=== PATIENT | female | born 1965 | race Caucasian/White ===

== ENCOUNTER 2018-05-30 14:38 | Emergency (ER) | payer BC ==
[~2018-05-30] VITALS: Ht 165.1 cm; Wt 120.2 kg
[2018-05-30] MEDS ORDERED: METOPROLOL SUCC25 MG (14:55)
[2018-05-30] MEDS ORDERED: LISINOPRIL20 MG (14:55)
[2018-05-30] MEDS ORDERED: MEDROLPACK PO (21:31)
== END 2018-05-30 22:24 | disposition home or self-care (01) ==
LOC: ER 14:38 → EDBD 16:02 → ER 16:02
DX: M54.31 Sciatica, right side (principal); N39.0 Urinary tract infection, site not specified; B96.89 Other specified bacterial agents as the cause of diseases classified elsewhere